=== PATIENT | male | born 1960 | race African-American/Black ===

== ENCOUNTER 2020-10-15 09:03 | Emergency (ER) | payer BC, OTHER ==
[~2020-10-15] VITALS: Ht 172.7 cm; Wt 72.3 kg
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
--- NOTE | 2020-10-15 10:29 | RAD ---
EXAM: Left shoulder, 3 views; pelvis and left hip, 3 views. HISTORY: Pain. COMPARISON: None. FINDINGS: Left shoulder: 3 views of the left shoulder obtained. There is no acute fracture, dislocation or subl uxation. There is minimal degenerative subchondral sclerosis involving the glenoid. There is degenera tive change involving the cervical spine, not formally assessed on this exam. Pelvis and left hip: A frontal view of the pelvis and 2 views of the left hip are obtained. There is no acute fracture, dislocation or subluxation. The femoral heads are normal in configuration. There i s a synovial cyst within the right femoral head-neck junction. This can be seen with chronic hip impi ngement. There is degenerative change at the lumbosacral junction. IMPRESSION: 1. No acute osseous finding. 2. Minimal left glenohumeral osteoarthritis. 3. Degenerative change involving the cervical spine and lumbosacral junction, not formally assessed o n this exam. Electronically signed by: Susana Camarillo MD (10/15/2020 10:27 AM) [facility]
[2020-10-15] MEDS ORDERED: NAPR-682 PO (11:04)
[2020-10-15 11:13] VITALS: BP 161/105
== END 2020-10-15 11:13 | disposition home or self-care (01) ==
LOC: ER 09:03
DX: S46.912A Strain of unspecified muscle, fascia and tendon at shoulder and upper arm level, left arm, initial encounter (principal); M25.552 Pain in left hip; M19.90 Unspecified osteoarthritis, unspecified site; I10 Essential (primary) hypertension; F17.200 Nicotine dependence, unspecified, uncomplicated; V49.49XA Driver injured in collision with other motor vehicles in traffic accident, initial encounter; Y93.I9 Activity, other involving external motion; Y92.89 Other specified places as the place of occurrence of the external cause; Y99.8 Other external cause status
CPT/HCPCS: 73030; 73502; 99284

== ENCOUNTER 2021-05-23 18:37 | Emergency (ER) | payer OTHER ==
[~2021-05-23] VITALS: Ht 172.7 cm; Wt 86.2 kg
[~2021-05-23 18:37] MED LIST: NAPR-682 PO
[2021-05-23 21:26] LABS: BILIRUBIN,URINE NEGATIVE (NEG); CLARITY,URINE CLEAR; COLOR,URINE YELLOW; NITRITE,URINE NEGATIVE (NEG); PH,URINE 6.5 (<5.0-8.0); PROTEIN,URINE NEGATIVE (NEG-TRACE); UROBILINOGEN,URINE 0.2 mg/dL (0.2 mg/dL)
[2021-05-23] MEDS ORDERED: ONDANSETRON PF 4 MG/2 ML VIAL. IVP ONE (21:30)
[2021-05-23] MEDS ORDERED: MORPHINE SULFATE 4 MG/ML INJ. IVP ONE (21:30)
[2021-05-23 21:35] LABS: BACTERIA,URINE 0 /HPF (0-FEW); BARBITURATES NEG (NEG); BENZODIAZEPINES NEG (NEG); CANNABINOIDS NEG (NEG); COCAINE NEG (NEG); METHADONE NEG (NEG); OPIATES NEG (NEG); PHENCYCLIDINE NEG (NEG); RBC,URINE 0 /HPF (0-2); WBC,URINE OCC /HPF (0-4)
[2021-05-23 21:37] LABS: AMPHETAMINE/METHAMPHETAMINE NEG (NEG)
[2021-05-23 21:39] LABS: BASO % 0 % (0-3); EOS # 0.2 x10^3/uL (0.0-0.7); EOS % 2 % (0-3); HEMATOCRIT 39.1 % (39.0-53.0); HEMOGLOBIN 13.3 g/dL (13.0-17.5); LYMPH # 3.2 x10^3/uL (1.0-4.8); LYMPH % 26 % (24-48); MEAN CORPUSCULAR HEMOGLOBIN 31 pg (25-35); MEAN CORPUSCULAR HGB CONC 34 g/dL (31-37); MEAN CORPUSCULAR VOLUME 92 fL (79-100); MONO # 0.8 x10^3/uL (0.0-1.1); MONO % 6 % (0-9); NEUT # 8.1 x10^3/uL (1.8-7.7); NEUT % 66 % (31-73); PLATELET COUNT 392 x10^3/uL (140-400); RED BLOOD COUNT 4.27 x10^6/uL (4.30-5.70); RED CELL DISTRIBUTION WIDTH 13.2 % (11.5-14.5); WHITE BLOOD COUNT 12.3 x10^3/uL (4.0-11.0)
[2021-05-23 21:51] LABS: CALCIUM 8.9 mg/dL (8.5-10.1); CREATININE 1.1 mg/dL (0.7-1.3); GFR 82.3; POTASSIUM 3.4 mmol/L (3.5-5.1)
[2021-05-23 21:57] LABS: ALBUMIN 3.8 g/dL (3.4-5.0); TOTAL BILIRUBIN 0.4 mg/dL (0.2-1.0); TOTAL PROTEIN 7.5 g/dL (6.4-8.2)
[2021-05-23] MEDS ORDERED: IOHEXOL 300 MG/ML 100ML VIAL. IV ONE (22:00)
[2021-05-23] MEDS ORDERED: CONTRAST GIVEN. MC PRN (22:00)
--- NOTE | 2021-05-23 22:25 | RAD ---
EXAM: CT Abdomen and Pelvis with IV contrast CLINICAL HISTORY: Right lower quadrant pain COMPARISON: none TECHNIQUE: Helical CT of the abdomen and pelvis was performed following the administration of intrave nous contrast. Axial, coronal and sagittal reformatted images were generated. PQRS compliance statement - One or more of the following individualized dose reduction techniques wer e utilized for this study: 1. Automated exposure control 2. Adjustment of the mA and/or kV according to patient size 3. Use of iterative reconstruction technique FINDINGS: Lower Chest: Linear and bandlike opacities likely scarring/atelectasis. Abdomen and Pelvis: No focal liver lesion. Gallstones are seen within the gallbladder. No biliary ductal dilatation. Ther e is edema between the pancreatic head and duodenum. Small calcification in this region possibly with in the common bile duct. Spleen and adrenal glands are unremarkable. Symmetric nephrograms. No focal renal lesion. No hydronep hrosis. No hydroureter. Bladder is unremarkable. Aorta is normal in caliber with atherosclerotic calcifications. Appendix is normal. Moderate colonic stool content. No bowel obstruction. Colonic diverticula are see n without evidence for acute diverticulitis. No abdominal or pelvic ascites. No abdominal or pelvic l ymphadenopathy. Bones: No aggressive osseous lesion. Facet degenerative changes in the lower spine. IMPRESSION: 1. 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 However give n the associated calcification, calcified gallstone within the common bile duct may also result in th is appearance. Recommend correlation with lab values and if further imaging is clinically indicated, MRI/MRCP would provide additional details. Differential also includes gastritis or duodenitis. 2. Colonic diverticula are seen without evidence for acute diverticulitis. Electronically signed by: Preston Sandoval MD (05/23/2021 10:23 PM) [facility]
--- NOTE | 2021-05-24 00:01 | RAD ---
EXAM: ULTRASOUND ABDOMEN LIMITED CLINICAL HISTORY: Reason: abd pain possible calcified gallstone on CT COMPARISON: CT 05/23/2020 TECHNIQUE: Limited ultrasound examination of the right upper quadrant of the abdomen was performed. FINDINGS: The pancreas is mostly obscured by overlying bowel gas.. Liver: The hepatic margin is smooth and the hepatic echogenicity is normal. There are no focal liver lesions. Flow seen within the portal veins. Biliary: Cholelithiasis. No wall thickening or pericholecystic fluid. There is no pain with direct transducer pressure over the gallbladder. Common bile duct measures 0.4 cm. Right Kidney: 10.5 cm in bipolar length. Normal renal cortical echotexture and thickness. No focal re nal lesion, shadowing renal calculus or hydronephrosis. Visualized portions of the abdominal aorta and inferior vena cava are unremarkable. There is no free fluid in the subhepatic space. IMPRESSION: Cholelithiasis. No evidence of acute cholecystitis. Normal caliber common bile duct. Electronically signed by: Srini Grigsby MD (05/23/2021 11:58 PM) [facility]
[2021-05-24] MEDS ORDERED: BISACODYL 5 MG TABLET.DR. PO STA (00:14)
[2021-05-24] MEDS ORDERED: MAGNESIUM CITRATE 296 ML SOLUTION. PO ONE (00:15)
[2021-05-24] MEDS ORDERED: POLY119P4 PO (00:24)
--- NOTE | 2021-05-24 00:25 | PHYS DOC ---
Past Medical History Past Medical History: Hypertension Past Surgical History: No Surgical History Smoking Status: Current Every Day Smoker Alcohol Use: Rarely Drug Use: None General Adult EDM: Chief Complaint: ABDOMINAL PAIN HPI: HPI: Patient is a 60 year old male with history of hypertension who presents the ED today complaining of 10 out of 10 right-sided abdominal pain, symptoms began Rich last week. Patient states he feels constipated. He states he took milk of magnesium and Pepto-Bismol with no relief. Patient denies any nausea, vomiting, diarrhea. Denies any fever. Denies anything specifically exacerbating or relieving his symptoms. He states his had small amount of stool since Saturday Review of Systems: Review of Systems: Constitutional: Denies fever or chills. [] Eyes: Denies change in visual acuity. [] HENT: Denies nasal congestion or sore throat. [] Respiratory: Denies cough or shortness of breath. [] Cardiovascular: Denies chest pain or edema. [] GI: Reports abdominal pain, denies Musculoskeletal: Denies back pain or joint pain. [] Integument: Denies rash. [] Neurologic: Denies headache, focal weakness or sensory changes. [] Psychiatric: Denies depression or anxiety. [] Heart Score: C/O Chest Pain: N/A Risk Factors: Risk Factors: DM, Current or recent (<one month) smoker, HTN, HLP, family history of CAD, obesity. Risk Scores: Score 0 - 3: 2.5% MACE over next 6 weeks - Discharge Home Score 4 - 6: 20.3% MACE over next 6 weeks - Admit for Clinical Observation Score 7 - 10: 72.7% MACE over next 6 weeks - Early Invasive Strategies Current Medications: Current Medications Medications (Trade) Dose Ordered Sig/Sarai Start Time Stop Time Status Last Admin Dose Admin Info (CONTRAST GIVEN -- Rx MONITORING) 1 each PRN DAILY PRN 05/23/21 22:00 05/25/21 21:59 Iohexol (Omnipaque 300 Mg/ml) 75 ml 1X ONCE 05/23/21 22:00 05/23/21 22:01 DC 05/23/21 22:04 75 ML Morphine Sulfate (Morphine Sulfate) 4 mg 1X ONCE 05/23/21 21:30 05/23/21 21:31 DC 05/23/21 22:29 4 MG Ondansetron HCl (Zofran) 4 mg 1X ONCE 05/23/21 21:30 05/23/21 21:31 DC 05/23/21 22:27 4 MG Allergies: Allergies: Allergies Coded Allergies Type Severity Reaction Last Updated Verified No Known Drug Allergies 06/24/15 No Physical Exam: PE: Constitutional: Well developed, well nourished, no acute distress, non-toxic appearance. [] HENT: Normocephalic, atraumatic, bilateral external ears normal, oropharynx moist, no oral exudates, nose normal. [] Eyes: PERRLA, EOMI, conjunctiva normal, no discharge. [] Neck: Normal range of motion, no tenderness, supple, no stridor. [] Cardiovascular:Heart rate regular rhythm, no murmur [] Lungs & Thorax: Bilateral breath sounds clear to auscultation [] Abdomen: Bowel sounds normal, soft, diffuse tenderness of the right side of the abdomen, negative Fischer sign, negative psoas sign, negative obturator sign, no guarding, no rebound tenderness no masses, no pulsatile masses. [] Skin: Warm, dry, no erythema, no rash. [] Back: No tenderness, no CVA tenderness. [] Extremities: No tenderness, no cyanosis, no clubbing, ROM intact, no edema. [] Neurologic: Alert and oriented X 3, normal motor function, normal sensory function, no focal deficits noted. [] Psychologic: Affect normal, judgement normal, mood normal. [] Current Patient Data: Labs: Laboratory Tests Test 05/23/21 21:00 05/23/21 21:30 Urine Collection Type Unknown Urine Color Yellow Urine Clarity Clear Urine pH 6.5 (<5.0-8.0) Urine Specific [place] 1.015 (1.000-1.030) Urine Protein Negative mg/dL (NEG-TRACE) Urine Glucose (UA) Negative mg/dL (NEG) Urine Ketones (Stick) Negative mg/dL (NEG) Urine Blood Negative (NEG) Urine Nitrite Negative (NEG) Urine Bilirubin Negative (NEG) Urine Urobilinogen Dipstick 0.2 mg/dL (0.2 mg/dL) Urine Leukocyte Esterase Negative (NEG) Urine RBC 0 /HPF (0-2) Urine WBC Occ /HPF (0-4) Urine Squamous Epithelial Cells Occ /LPF Urine Bacteria 0 /HPF (0-FEW) Urine Opiates Screen Neg (NEG) Urine Methadone Screen Neg (NEG) Urine Barbiturates Neg (NEG) Urine Phencyclidine Screen Neg (NEG) Urine Amphetamine/Methamphetamine Neg (NEG) Urine Benzodiazepines Screen Neg (NEG) Urine Cocaine Screen Neg (NEG) Urine Cannabinoids Screen Neg (NEG) Urine Ethyl Alcohol Neg (NEG) White Blood Count 12.3 x10^3/uL (4.0-11.0) H Red Blood Count 4.27 x10^6/uL (4.30-5.70) L Hemoglobin 13.3 g/dL (13.0-17.5) Hematocrit 39.1 % (39.0-53.0) Mean Corpuscular Volume 92 fL (79-100) Mean Corpuscular Hemoglobin 31 pg (25-35) Mean Corpuscular Hemoglobin Concent 34 g/dL (31-37) Red Cell Distribution Width 13.2 % (11.5-14.5) Platelet Count 392 x10^3/uL (140-400) Neutrophils (%) (Auto) 66 % (31-73) Lymphocytes (%) (Auto) 26 % (24-48) Monocytes (%) (Auto) 6 % (0-9) Eosinophils (%) (Auto) 2 % (0-3) Basophils (%) (Auto) 0 % (0-3) Neutrophils # (Auto) 8.1 x10^3/uL (1.8-7.7) H Lymphocytes # (Auto) 3.2 x10^3/uL (1.0-4.8) Monocytes # (Auto) 0.8 x10^3/uL (0.0-1.1) Eosinophils # (Auto) 0.2 x10^3/uL (0.0-0.7) Basophils # (Auto) 0.0 x10^3/uL (0.0-0.2) Sodium Level 141 mmol/L (136-145) Potassium Level 3.4 mmol/L (3.5-5.1) L Chloride Level 105 mmol/L (98-107) Carbon Dioxide Level 26 mmol/L (21-32) Anion Gap 10 (6-14) Blood Urea Nitrogen 11 mg/dL (8-26) Creatinine 1.1 mg/dL (0.7-1.3) Estimated GFR (Cockcroft-Gault) 82.3 BUN/Creatinine Ratio 10 (6-20) Glucose Level 126 mg/dL (70-99) H Calcium Level 8.9 mg/dL (8.5-10.1) Total Bilirubin 0.4 mg/dL (0.2-1.0) Aspartate Amino Transferase (AST) 14 U/L (15-37) L Alanine Aminotransferase (ALT) 24 U/L (16-63) Alkaline Phosphatase 79 U/L (46-116) Total Protein 7.5 g/dL (6.4-8.2) Albumin 3.8 g/dL (3.4-5.0) Albumin/Globulin Ratio 1.0 (1.0-1.7) Lipase 112 U/L (73-393) Ethyl Alcohol Level < 10 mg/dL (0-10) Laboratory Tests 05/23/21 21:30 Laboratory Tests 05/23/21 21:30 Vital Signs: Vital Signs Date Time Temp Pulse Resp B/P (MAP) Pulse Ox O2 Delivery O2 Flow Rate FiO2 05/23/21 22:29 78 18 144/96 (112) 99 Room Air 05/23/21 21:10 97.6 97.6 EKG: EKG: [] Radiology/Procedures: Radiology/Procedures: []PROCEDURE: CT ABD PELV W/ IV CONTRST ONLY EXAM: CT Abdomen and Pelvis with IV contrast CLINICAL HISTORY: Right lower quadrant pain COMPARISON: none TECHNIQUE: Helical CT of the abdomen and pelvis was performed following the administration of intravenous contrast. Axial, coronal and sagittal reformatted images were generated. PQRS compliance statement - One or more of the following individualized dose reduction techniques were utilized for this study: 1. Automated exposure control 2. Adjustment of the mA and/or kV according to patient size 3. Use of iterative reconstruction technique FINDINGS: Lower Chest: Linear and bandlike opacities likely scarring/atelectasis. Abdomen and Pelvis: No focal liver lesion. Gallstones are seen within the gallbladder. No biliary ductal dilatation. There is edema between the pancreatic head and duodenum. Small calcification in this region possibly within the common bile duct. Spleen and adrenal glands are unremarkable. Symmetric nephrograms. No focal renal lesion. No hydronephrosis. No hydroureter. Bladder is unremarkable. Aorta is normal in caliber with atherosclerotic calcifications. Appendix is normal. Moderate colonic stool content. No bowel obstruction. Colonic diverticula are seen without evidence for acute diverticulitis. No abdom inal or pelvic ascites. No abdominal or pelvic lymphadenopathy. Bones: No aggressive osseous lesion. Facet degenerative changes in the lower spine. IMPRESSION: 1. 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 However given the associated calcification, calcified gallstone within the common bile duct may also result in this appearance. Recommend correlation with lab values and if further imaging is clinically indicated, MRI/MRCP would provide additional details. Differential also includes gastritis or duodenitis. 2. Colonic diverticula are seen without evidence for acute diverticulitis. Electronically signed by: Preston Jaeger MD (05/23/2021 10:23 PM) [facility] DI[facility]ATED and SIGNED BY: PRESTON JAEGER MD DATE: 05/23/[id number] 0 PROCEDURE: ABDOMEN LTD EXAM: ULTRASOUND ABDOMEN LIMITED CLINICAL HISTORY: Reason: abd pain possible calcified gallstone on CT COMPARISON: CT 05/23/2020 TECHNIQUE: Limited ultrasound examination of the right upper quadrant of the abdomen was performed. FINDINGS: The pancreas is mostly obscured by overlying bowel gas.. Liver: The hepatic margin is smooth and the hepatic echogenicity is normal. There are no focal liver lesions. Flow seen within the portal veins. Biliary: Cholelithiasis. No wall thickening or pericholecystic fluid. There is no pain with direct transducer pressure over the gallbladder. Common bile duct measures 0.4 cm. Right Kidney: 10.5 cm in bipolar length. Normal renal cortical echotexture and thickness. No focal renal lesion, shadowing renal calculus or hydronephrosis. Visualized portions of the abdominal aorta and inferior vena cava are unremarkable. There is no free fluid in the subhepatic space. IMPRESSION: Cholelithiasis. No evidence of acute cholecystitis. Normal caliber common bile duct. Electronically signed by: Karsten Grigsby MD (05/23/2021 11:58 PM) [facility] DI[facility]ATED and SIGNED BY: KARSTEN GRIGSBY MD DATE: 05/23/[id number] 0 Course & Med Decision Making: Course & Med Decision Making Pertinent Labs and Imaging studies reviewed. (See chart for details) This is a 60-year-old male patient presenting to the ED today with right-sided abdominal pain since Saturday last week. Patient is complaining of constipation. CBC with a WBC of 12.3, CMP, lipase, UA with no acute findings CT of the abdomen and pelvis noted for edema between the pancreatic head and duodenum may be seen with groove pancreatitis. However given the associated calcification, calcified gallstone within the common bile duct may also result in this appearance. Recommend correlation with lab values and if further imaging is clinically indicated, MRI/MRCP would provide additional details. Differential also includes gastritis or duodenitis.Colonic diverticula are seen without evidence for acute diverticulitis. Moderate colonic stool Limited right upper quadrant ultrasound noted for cholelithiasis, no cholecystitis Provided general surgeon for follow-up, discharge to home. Discussed constipation management and prevention Dragon Disclaimer: Dragon Disclaimer: This electronic medical record was generated, in whole or in part, using a voice recognition dictation system. Departure Departure Impression: Primary Impression: Cholelithiasis Qualified Codes: K80.20 - Calculus of gallbladder without cholecystitis without obstruction Additional Impressions: Constipation Qualified Codes: K59.00 - Constipation, unspecified Right lower quadrant pain Disposition: HOME / SELF CARE / HOMELESS Condition: STABLE Referrals: RAMBO VANG JR, MD (PCP) follow up in 2 weeks JUDITH FLOOD MD follow up in 1-2 weeks Patient Instructions: Cholelithiasis, [id number], Constipation, Adult Additional Instructions: You were evaluated in the emergency room and noted to be constipated, we encourage you to increase your dietary fiber intake, increase your intake of green leafy vegetables. Increase your water intake. You also have some gallstones. Please follow-up with the provided general surgeon as an outpatient for this. One thing you can do is to avoid eating greasy fatty foods, spicy foods, this may reduce some of the incidence of abdominal pain. Scripts Polyethylene Glycol 3350 (MIRALAX) 119 Gm Powder 17 GM PO DAILY for constipation, #527 GM 0 Refills dissolve in water Prov: AVA GONSALES APRN 05/24/21 AVA GONSALES APRN May 24, 2021 00:25
[2021-05-24 00:33] VITALS: BP 155/99
== END 2021-05-24 00:40 | disposition home or self-care (01) ==
LOC: ER 18:37
DX: K80.20 Calculus of gallbladder without cholecystitis without obstruction (principal); K59.00 Constipation, unspecified; I10 Essential (primary) hypertension; F17.200 Nicotine dependence, unspecified, uncomplicated
CPT/HCPCS: 36415; 74177; 76705; 80053; 80307; 81001; 83690; 85025; 96374; 96375; 99285; G0480; J2270; J2405; Q9967

== ENCOUNTER 2021-11-04 06:23 | Emergency (ER) | payer OTHER ==
[~2021-11-04] VITALS: Ht 175.3 cm; Wt 81.8 kg
[~2021-11-04 06:23] MED LIST changes: +POLY119P4 PO
--- NOTE | 2021-11-04 06:36 | PHYS DOC ---
Past Medical History Past Medical History: Hypertension Past Surgical History: No Surgical History Smoking Status: Current Every Day Smoker Alcohol Use: Rarely Drug Use: None Adult General HPI HPI Patient is a 61 year old male present emergency department for evaluation of diffuse upper abdominal pain that has been going on for months as he says he was here in June for the same complaint but appears that he was here in May for abdominal pain. He says he has been dealing with it but the pain has been worse over the past several days. The pain gets worse with eating and drinking and he has been eating and drinking less. Pain starts within minutes of eating and is a sharp and aching pain in the epigastrium and right upper quadrant that radiates straight through the back. He has nausea and constipation but no fe vers chills vomiting diarrhea dysuria hematuria. He says that he does urinate more often and wakes up at least 3 times at night to urinate. He has been taking laxatives including MiraLAX and magnesium citrate to have bowel movements. His last bowel movement was 2 days ago. He is in no acute distress with normal vital signs. Looking at the records appears that he had a CT and ultrasound done in May that showed cholelithiasis and he had leukocytosis and was supposed to follow-up with a general surgeon as an outpatient. He said he did not know this and he has seen his primary care provider and has not been started on any medications for gastritis. He says he is on no PPI or H2 block er. He denies any specialty referrals. Review of Systems Review of Systems Constitutional: Denies fever or chills [] Eyes: Denies change in visual acuity, redness, or eye pain [] HENT: Denies nasal congestion or sore throat [] Respiratory: Denies cough or shortness of breath [] Cardiovascular: No additional information not addressed in HPI [] GI: + abdominal pain, nausea. No vomiting, bloody stools or diarrhea [] : Denies dysuria or hematuria [] Musculoskeletal: Denies back pain or joint pain [] Integument: Denies rash or skin lesions [] Neurologic: Denies headache, focal weakness or sensory changes [] All other systems were reviewed and found to be within normal limits, except as documented in this note. Current Medications Current Medications Current Medications Medications (Trade) Dose Ordered Sig/Sarai Start Time Stop Time Status Last Admin Dose Admin Morphine Sulfate (Morphine Sulfate) 4 mg 1X PRN 11/04/21 06:45 11/04/21 08:05 4 MG Multi-Ingredient Mouthwash/Gargle (Gi Cocktail) 20 ml 1X ONCE 11/04/21 07:00 11/04/21 07:01 DC 11/04/21 08:04 20 ML Ondansetron HCl (Zofran) 4 mg 1X ONCE 11/04/21 06:45 11/04/21 06:46 DC 11/04/21 08:05 4 MG Pantoprazole Sodium (PROTONIX VIAL for IV PUSH) 40 mg 1X ONCE 11/04/21 07:00 11/04/21 07:01 DC 11/04/21 08:06 40 MG Sodium Chloride 1,000 ml @ 1,000 mls/hr 1X ONCE 11/04/21 06:45 11/04/21 07:44 DC 11/04/21 08:04 1,000 MLS/HR Allergies Allergies Allergies Coded Allergies Type Severity Reaction Last Updated Verified No Known Drug Allergies 11/04/21 No Physical Exam Physical Exam Constitutional: Well developed, well nourished, no acute distress, non-toxic william earance. [] HENT: Normocephalic, atraumatic, bilateral external ears normal, oropharynx moist, no oral exudates, nose normal. [] Eyes: PERRLA, EOMI, conjunctiva normal, no discharge. [] Neck: Normal range of motion, no tenderness, supple, no stridor. [] Cardiovascular:Heart rate regular rhythm, no murmur [] Lungs & Thorax: Bilateral breath sounds clear to auscultation [] Abdomen: Bowel sounds normal, soft, positive epigastric tenderness to palpation with no rebound or guarding. Skin: Warm, dry, no erythema, no rash. [] Back: No tenderness, no CVA tenderness. [] Extremities: No tenderness, no cyanosis, no clubbing, ROM intact, no edema. [] Neurologic: Alert and oriented X 3, normal motor function, normal sensory function, no focal deficits noted. [] Current Patient Data Vital Signs Vital Signs Date Time Temp Pulse Resp B/P (MAP) Pulse Ox O2 Delivery O2 Flow Rate FiO2 11/04/21 08:05 0 98 Room Air 11/04/21 06:43 97.9 79 143/80 (101) 97.9 Lab Values Laboratory Tests Test 11/04/21 07:37 11/04/21 08:57 11/04/21 09:18 White Blood Count 10.2 x10^3/uL (4.0-11.0) Red Blood Count 4.76 x10^6/uL (4.30-5.70) Hemoglobin 14.3 g/dL (13.0-17.5) Hematocrit 42.2 % (39.0-53.0) Mean Corpuscular Volume 89 fL (79-100) Mean Corpuscular Hemoglobin 30 pg (25-35) Mean Corpuscular Hemoglobin Concent 34 g/dL (31-37) Red Cell Distribution Width 14.7 % (11.5-14.5) H Platelet Count 460 x10^3/uL (140-400) H Neutrophils (%) (Auto) 66 % (31-73) Lymphocytes (%) (Auto) 23 % (24-48) L Monocytes (%) (Auto) 7 % (0-9) Eosinophils (%) (Auto) 2 % (0-3) Basophils (%) (Auto) 1 % (0-3) Neutrophils # (Auto) 6.8 x10^3/uL (1.8-7.7) Lymphocytes # (Auto) 2.4 x10^3/uL (1.0-4.8) Monocytes # (Auto) 0.7 x10^3/uL (0.0-1.1) Eosinophils # (Auto) 0.2 x10^3/uL (0.0-0.7) Basophils # (Auto) 0.1 x10^3/uL (0.0-0.2) Sodium Level 142 mmol/L (136-145) Potassium Level 4.0 mmol/L (3.5-5.1) Chloride Level 108 mmol/L (98-107) H Carbon Dioxide Level 24 mmol/L (21-32) Anion Gap 10 (6-14) Blood Urea Nitrogen 5 mg/dL (8-26) L Creatinine 1.1 mg/dL (0.7-1.3) Estimated GFR (Cockcroft-Gault) 82.1 BUN/Creatinine Ratio 5 (6-20) L Glucose Level 101 mg/dL (70-99) H Calcium Level 8.8 mg/dL (8.5-10.1) Total Bilirubin 0.5 mg/dL (0.2-1.0) Aspartate Amino Transferase (AST) 9 U/L (15-37) L Alanine Aminotransferase (ALT) 12 U/L (16-63) L Alkaline Phosphatase 54 U/L (46-116) Total Protein 6.3 g/dL (6.4-8.2) L Albumin 3.1 g/dL (3.4-5.0) L Albumin/Globulin Ratio 1.0 (1.0-1.7) Lipase 69 U/L (73-393) L Urine Collection Type Unknown Urine Color (Auto) Yellow Urine Turbidity Clear Urine pH (Auto) 6.0 (<5.0-8.0) Urine Specific [place] 1.014 (1.000-1.030) Urine Protein (Auto) Negative mg/dL (Negative) Urine Glucose (Auto)(UA) Negative mg/dL (Negative) Urine Ketones (Auto) Negative mg/dL (Negative) Urine Blood (Auto) Negative (Negative) Urine Nitrite Negative (Negative) Urine Bilirubin (Auto) Negative (Negative) Urine Urobilinogen (Auto) Normal mg/dL (Normal) Urine Leukocyte Esterase (Auto) Negative (Negative) Urine RBC 0 /HPF (0-2) Urine WBC Occ /HPF (0-4) Urine Squamous Epithelial Cells Few /LPF Urine Bacteria 0 /HPF (0-FEW) Urine Mucus Slight /LPF Laboratory Tests 11/04/21 07:37 Laboratory Tests 11/04/21 08:57 EKG EKG [] Radiology/Procedures Radiology/Procedures IMPRESSION: 1. Inflammatory changes are identified in the region of the gastric antrum, proximal duodenum and head/uncinate process of the pancreas. Differential considerations would include pancreatitis with reactive inflammatory changes involving the bowel versus peptic ulcer disease without perforation versus groove pancreatitis. No organized fluid collection is identified. No evidence for hemorrhage. 2. Bronchial wall thickening compatible with nonspecific bronchitis. 3. Coarse calcifications within the region of the head and uncinate process of pancreas could reflect sequela of chronic pancreatitis. Course & Med Decision Making Course & Med Decision Making Certainly gastritis or ulcer or gallbladder pathology are in the differential but I will check labs and imaging treat his symptoms and reassess. Based off radiology interpretation I highly suspect this is gastritis and duodenitis. Pancreatitis is a consideration but his lipase is normal. Chronic pancreatitis is a possibility as well but patient says he does not drink alcohol and there is no signs of active gallbladder disease with normal liver enzymes and bilirubin. Clinically I suspect this is more of inflammatory state of the stomach and the duodenum with possible ulcer. Patient says that his pain has resolved here and his repeat abdominal exam is benign and he is drinking fluids with no difficulty and asking to go home. Patient says that he would like to be treated for these conditions. I do not see any reason to admit him to the hospital for further GI work-up as an inpatient but I did tell him he will need outpatient referral to GI and likely endoscopy as an outpatient. He also wants to be treated for BPH. I told him I will start him on Flomax for this but he will need to follow with his primary care provider. Patient told of all incide ntal findings on labs and imaging and the need for follow-up with primary care provider for this as well. Patient told to take in a soft nonirritating diet. Patient aware and agreeable with plan for discharge and verbalized understanding of need for short-term PCP and GI follow-up and strict ED return precautions discussed include worsening pain fevers vomiting or other general concerns. Dragon Disclaimer Dragon Disclaimer This electronic medical record was generated, in whole or in part, using a voice recognition dictation system. Departure Departure Impression: Primary Impression: Abdominal pain Additional Impressions: Gastritis Duodenitis Disposition: HOME / SELF CARE / HOMELESS Condition: STABLE Referrals: RAMBO VANG JR, MD (PCP) NADER HERNANDEZ MD Patient Instructions: Gastritis, Adult Additional Instructions: The medications I will prescribe will help your pain however it will not take all your pain away from the start. Avoid nsaids such as Naproxen and Ibuprofen as this will make your condition worse. Start on the Protonix and take the [place] as needed for severe pain. You can continue taking Tums and Maalox for immediate relief. Take in a soft nonirritating diet. Follow-up with your primary care provider within 3 to 4 days for recheck. Call the GI doctor on Saturday for follow-up. Come back to the emergency department with worsening pain fevers vomiting or other general concerns. Thank you! Scripts Pantoprazole Sodium (PROTONIX ) 40 Mg Tablet. 40 MG PO DAILYAC for GERD, #30 TAB Prov: TATUM MAST DO 11/04/21 Ondansetron (ONDANSETRON ODT) 4 Mg Tab.rapdis 1 TAB PO PRN Q6-8HRS, #16 TAB Prov: TATUM MAST DO 11/04/21 Hydrocodone Bit/Acetaminophen (HYDROCODONE-APAP 5-325 ) 1 Tab Tablet 1 TAB PO PRN Q6HRS PRN for PAIN, #20 TAB 0 Refills Prov: TATUM MAST DO 11/04/21 Tamsulosin Hcl (FLOMAX) 0.4 Mg Cap.er.24h 0.4 MG PO QHS, #30 TAB Prov: TATUM MAST DO 11/04/21 Problem Qualifiers Primary Impression: Abdominal pain Abdominal location: epigastric Qualified Codes: R10.13 - Epigastric pain Additional Impressions: Gastritis Gastritis type: unspecified gastritis Chronicity: chronic Gastritis bleeding: without bleeding Qualified Codes: K29.50 - Unspecified chronic gastritis without bleeding TATUM MAST DO November 04, 2021 06:36
[2021-11-04] MEDS ORDERED: IV NORMAL SALINE 1000ML BAG 1,000 ML IV ONE (06:45)
[2021-11-04] MEDS ORDERED: ONDANSETRON PF 4 MG/2 ML VIAL. IVP ONE (06:45)
[2021-11-04] MEDS ORDERED: MORPHINE SULFATE 4 MG/ML INJ. IV PRN (06:45)
[2021-11-04] MEDS ORDERED: PANTOPRAZOLE IV PUSH 40 MG VIAL. IVP ONE (07:00)
[2021-11-04] MEDS ORDERED: LIDO:MAALOX 1:1 20 ML SINGLE DOSE. SWSW ONE (07:00)
[2021-11-04 07:50] LABS: BASO # 0.1 x10^3/uL (0.0-0.2); BASO % 1 % (0-3); EOS # 0.2 x10^3/uL (0.0-0.7); EOS % 2 % (0-3); HEMATOCRIT 42.2 % (39.0-53.0); HEMOGLOBIN 14.3 g/dL (13.0-17.5); LYMPH # 2.4 x10^3/uL (1.0-4.8); LYMPH % 23 % (24-48); MEAN CORPUSCULAR HEMOGLOBIN 30 pg (25-35); MEAN CORPUSCULAR HGB CONC 34 g/dL (31-37); MEAN CORPUSCULAR VOLUME 89 fL (79-100); MONO # 0.7 x10^3/uL (0.0-1.1); MONO % 7 % (0-9); NEUT # 6.8 x10^3/uL (1.8-7.7); NEUT % 66 % (31-73); PLATELET COUNT 460 x10^3/uL (140-400); RED BLOOD COUNT 4.76 x10^6/uL (4.30-5.70); RED CELL DISTRIBUTION WIDTH 14.7 % (11.5-14.5); WHITE BLOOD COUNT 10.2 x10^3/uL (4.0-11.0)
--- NOTE | 2021-11-04 07:57 | RAD ---
PQRS Compliance Statement: One or more of the following individualized dose reduction techniques were utilized for this examinat ion: 1. Automated exposure control 2. Adjustment of the mA and/or kV according to patient size 3. Use of iterative reconstruction technique CT abdomen/pelvis without contrast 11/04/2021 7:24 AM INDICATION: Abdominal pain for months COMPARISON: CT abdomen/pelvis 05/23/2021 TECHNIQUE: Multiple axial CT images of the abdomen and pelvis were obtained without intravenous contr ast. Coronal and sagittal reformats are provided. FINDINGS: Bronchial wall thickening compatible with nonspecific bronchitis. Heart size is within normal limits. Evaluation of solid abdominal viscera is limited by lack of intravenous contrast. Liver is normal in appearance. Calcifications within the spleen suggest sequela prior granulomatous exposure. Adrenal g lands are normal. Gallbladder is present without adjacent inflammation. There are calcifications with in the pancreas which could represent sequela of chronic pancreatitis. There is circumferential wall thickening involving the gastric antrum proximal duodenum with peripancreatic inflammatory changes, a long the head and uncinate process. Differential considerations would include gastritis/duodenitis ve rsus pancreatitis or pancreatitis with reactive inflammatory changes involving the distal stomach and small bowel. No definite organized fluid collection is identified. Limited evaluation of the vascula ture in this region. Superior mesenteric artery is normal. The kidneys are relatively symmetric in appearance. There is no suspicious renal mass within the limi tations of a noncontrast examination. There is no hydronephrosis. There are no calculi within the kid neys, ureters or urinary bladder. Small and large bowel are otherwise normal in caliber. No bowel obstruction. Appendix is normal. Term inal ileum is normal. Urinary bladder is within normal limits given degree of distention. Prostate an d seminal vesicles are normal. No suspicious osseous abnormality is identified. IMPRESSION: 1. Inflammatory changes are identified in the region of the gastric antrum, proximal duodenum and hea d/uncinate process of the pancreas. Differential considerations would include pancreatitis with react khadar inflammatory changes involving the bowel versus peptic ulcer disease without perforation versus g roove pancreatitis. No organized fluid collection is identified. No evidence for hemorrhage. 2. Bronchial wall thickening compatible with nonspecific bronchitis. 3. Coarse calcifications within the region of the head and uncinate process of pancreas could reflect sequela of chronic pancreatitis. Electronically signed by: Darline Donald MD (11/04/2021 7:55 AM) [id number]
[2021-11-04 09:12] LABS: CALCIUM 8.8 mg/dL (8.5-10.1); CREATININE 1.1 mg/dL (0.7-1.3); GFR 82.1
[2021-11-04 09:18] LABS: ALBUMIN 3.1 g/dL (3.4-5.0); TOTAL BILIRUBIN 0.5 mg/dL (0.2-1.0); TOTAL PROTEIN 6.3 g/dL (6.4-8.2)
[2021-11-04 09:39] VITALS: BP 121/73
[2021-11-04 09:39] LABS: BACTERIA,URINE 0 /HPF (0-FEW); RBC,URINE 0 /HPF (0-2); WBC,URINE OCC /HPF (0-4)
[2021-11-04] MEDS ORDERED: ONDA4TAB12 PO ×2 (09:54→10:57)
[2021-11-04] MEDS ORDERED: HYDR-2761 PO ×2 (09:54→10:57)
[2021-11-04] MEDS ORDERED: PANT40TA77 PO ×2 (09:54→10:57)
[2021-11-04] MEDS ORDERED: TAMS0.4C97 PO ×2 (09:54→10:57)
== END 2021-11-04 10:00 | disposition home or self-care (01) ==
LOC: ER 06:23
DX: K29.70 Gastritis, unspecified, without bleeding (principal); K29.80 Duodenitis without bleeding; I10 Essential (primary) hypertension; F17.200 Nicotine dependence, unspecified, uncomplicated
CPT/HCPCS: 36415; 74176; 80053; 81001; 83690; 85025; 96361; 96374; 96375; 99285; C9113; J2270; J2405; J7030

== ENCOUNTER 2021-11-07 00:08 | Emergency (ER) | payer OTHER ==
[~2021-11-07] VITALS: Ht 177.8 cm; Wt 81.0 kg
[~2021-11-07 00:08] MED LIST changes: +HYDR-2761 PO; +ONDA4TAB12 PO; +PANT40TA77 PO; +TAMS0.4C97 PO
[2021-11-07] MEDS: IV RINGERS,LACTATED 1000ML 1,000 ML IV SCH ×2 (01:46→01:58)
[2021-11-07 01:57] LABS: BASO # 0.1 x10^3/uL (0.0-0.2); BASO % 1 % (0-3); EOS # 0.1 x10^3/uL (0.0-0.7); EOS % 1 % (0-3); HEMATOCRIT 40.1 % (39.0-53.0); HEMOGLOBIN 13.8 g/dL (13.0-17.5); LYMPH # 1.6 x10^3/uL (1.0-4.8); LYMPH % 15 % (24-48); MEAN CORPUSCULAR HEMOGLOBIN 31 pg (25-35); MEAN CORPUSCULAR HGB CONC 34 g/dL (31-37); MEAN CORPUSCULAR VOLUME 90 fL (79-100); MONO # 0.5 x10^3/uL (0.0-1.1); MONO % 5 % (0-9); NEUT # 8.3 x10^3/uL (1.8-7.7); NEUT % 78 % (31-73); PLATELET COUNT 438 x10^3/uL (140-400); RED BLOOD COUNT 4.47 x10^6/uL (4.30-5.70); RED CELL DISTRIBUTION WIDTH 14.5 % (11.5-14.5); WHITE BLOOD COUNT 10.6 x10^3/uL (4.0-11.0)
[2021-11-07] MEDS ORDERED: MORPHINE SULFATE 4 MG/ML INJ. IVP ONE (02:00)
[2021-11-07 02:15] LABS: CALCIUM 9.8 mg/dL (8.5-10.1); GFR 91.6; POTASSIUM 4.7 mmol/L (3.5-5.1)
[2021-11-07 02:22] LABS: ALBUMIN 3.7 g/dL (3.4-5.0); ALBUMIN/GLOBULIN RATIO 1.1 (1.0-1.7); TOTAL BILIRUBIN 0.4 mg/dL (0.2-1.0); TOTAL PROTEIN 7.2 g/dL (6.4-8.2)
[2021-11-07 02:27] LABS: BACTERIA,URINE 0 /HPF (0-FEW); RBC,URINE 0 /HPF (0-2); WBC,URINE OCC /HPF (0-4)
--- NOTE | 2021-11-07 03:20 | PHYS DOC ---
Past Medical History Past Medical History: Hypertension Past Surgical History: No Surgical History Smoking Status: Never Smoker Alcohol Use: None Drug Use: None General Adult EDM: Chief Complaint: ABDOMINAL PAIN HPI: HPI: Patient is a 61 year old male who presents to the emergency department today with concerns for abdominal pain. Patient states he began having abdominal pain on Saturday. He states he presented here and at that time was diagnosed with gastritis. He states he went home and has been taking Lortab for pain but pain was worse today. Pain is epigastric. It does not radiate. He states it is about a 9 out of 10 and has been constant since it began the day. He does not endorse some associated nausea but denies any vomiting. He denies any diarrhea. He denies any blood in his stools or black tarry stools. There are no palliative or provocative factors for the pain. He denies any associated fevers. Patient states that he did drink a couple beers today. Review of Systems: Review of Systems: Constitutional: Denies fever or chills. [] Eyes: Denies change in visual acuity. [] HENT: Denies nasal congestion or sore throat. [] Respiratory: Denies cough or shortness of breath. [] Cardiovascular: Denies chest pain or edema. [] GI: Positive for abdominal pain : Denies dysuria. [] Musculoskeletal: Denies back pain or joint pain. [] Integument: Denies rash. [] Neurologic: Denies headache, focal weakness or sensory changes. [] Endocrine: Denies polyuria or polydipsia. [] Lymphatic: Denies swollen glands. [] Psychiatric: Denies depression or anxiety. [] Heart Score: C/O Chest Pain: No Family History: Family History: Noncontributory Current Medications: Current Medications Medications (Trade) Dose Ordered Sig/Sarai Start Time Stop Time Status Last Admin Dose Admin Morphine Sulfate (Morphine Sulfate) 4 mg 1X ONCE 11/07/21 02:00 11/07/21 02:01 DC 11/07/21 01:48 4 MG Ringer's Solution 1,000 ml @ 1,000 mls/hr Q1H 11/07/21 02:00 11/07/21 03:00 DC 11/07/21 01:58 1,000 MLS/HR Allergies: Allergies: Allergies Coded Allergies Type Severity Reaction Last Updated Verified No Known Drug Allergies 11/04/21 No Physical Exam: PE: Constitutional: Well developed, well nourished, no acute distress, non-toxic appearance. [] HENT: Normocephalic, atraumatic, bilateral external ears normal, oropharynx moist, no oral exudates, nose normal. [] Eyes: PERRLA, EOMI, conjunctiva normal, no discharge. [] Neck: Normal range of motion, no tenderness, supple, no stridor. [] Cardiovascular:Heart rate regular rhythm, no murmur [] Lungs & Thorax: Bilateral breath sounds clear to auscultation [] Abdomen: Bowel sounds normal, soft, epigastric tenderness to palpation, no rebound or guarding no masses, no pulsatile masses. [] Skin: Warm, dry, no erythema, no rash. [] Back: No tenderness, no CVA tenderness. [] Extremities: No tenderness, no cyanosis, no clubbing, ROM intact, no edema. [] Neurologic: Alert and oriented X 3, normal motor function, normal sensory function, no focal deficits noted. [] Psychologic: Affect normal, judgement normal, mood normal. [] Current Patient Data: Labs: Laboratory Tests Test 11/07/21 01:41 11/07/21 02:01 White Blood Count 10.6 x10^3/uL (4.0-11.0) Red Blood Count 4.47 x10^6/uL (4.30-5.70) Hemoglobin 13.8 g/dL (13.0-17.5) Hematocrit 40.1 % (39.0-53.0) Mean Corpuscular Volume 90 fL (79-100) Mean Corpuscular Hemoglobin 31 pg (25-35) Mean Corpuscular Hemoglobin Concent 34 g/dL (31-37) Red Cell Distribution Width 14.5 % (11.5-14.5) Platelet Count 438 x10^3/uL (140-400) H Neutrophils (%) (Auto) 78 % (31-73) H Lymphocytes (%) (Auto) 15 % (24-48) L Monocytes (%) (Auto) 5 % (0-9) Eosinophils (%) (Auto) 1 % (0-3) Basophils (%) (Auto) 1 % (0-3) Neutrophils # (Auto) 8.3 x10^3/uL (1.8-7.7) H Lymphocytes # (Auto) 1.6 x10^3/uL (1.0-4.8) Monocytes # (Auto) 0.5 x10^3/uL (0.0-1.1) Eosinophils # (Auto) 0.1 x10^3/uL (0.0-0.7) Basophils # (Auto) 0.1 x10^3/uL (0.0-0.2) Sodium Level 142 mmol/L (136-145) Potassium Level 4.7 mmol/L (3.5-5.1) Chloride Level 106 mmol/L (98-107) Carbon Dioxide Level 25 mmol/L (21-32) Anion Gap 11 (6-14) Blood Urea Nitrogen 8 mg/dL (8-26) Creatinine 1.0 mg/dL (0.7-1.3) Estimated GFR (Cockcroft-Gault) 91.6 BUN/Creatinine Ratio 8 (6-20) Glucose Level 116 mg/dL (70-99) H Calcium Level 9.8 mg/dL (8.5-10.1) Total Bilirubin 0.4 mg/dL (0.2-1.0) Aspartate Amino Transferase (AST) 23 U/L (15-37) Alanine Aminotransferase (ALT) 20 U/L (16-63) Alkaline Phosphatase 68 U/L (46-116) Troponin I High Sensitivity 5 ng/L (4-75) Total Protein 7.2 g/dL (6.4-8.2) Albumin 3.7 g/dL (3.4-5.0) Albumin/Globulin Ratio 1.1 (1.0-1.7) Lipase 89 U/L (73-393) Urine Collection Type Unknown Urine Color (Auto) Colorless Urine Turbidity Clear Urine pH (Auto) 7.0 (<5.0-8.0) Urine Specific [place] 1.009 (1.000-1.030) Urine Protein (Auto) Negative mg/dL (Negative) Urine Glucose (Auto)(UA) Negative mg/dL (Negative) Urine Ketones (Auto) Negative mg/dL (Negative) Urine Blood (Auto) Negative (Negative) Urine Nitrite Negative (Negative) Urine Bilirubin (Auto) Negative (Negative) Urine Urobilinogen (Auto) Normal mg/dL (Normal) Urine Leukocyte Esterase (Auto) Negative (Negative) Urine RBC 0 /HPF (0-2) Urine WBC Occ /HPF (0-4) Urine Squamous Epithelial Cells Few /LPF Urine Bacteria 0 /HPF (0-FEW) Urine Mucus Slight /LPF Laboratory Tests 11/07/21 01:41 Laboratory Tests 11/07/21 01:41 Vital Signs: Vital Signs Date Time Temp Pulse Resp B/P (MAP) Pulse Ox O2 Delivery O2 Flow Rate FiO2 11/07/21 01:56 75 14 164/101 (122) 96 Room Air 11/07/21 00:46 98.6 98.6 EKG: EKG: [] Radiology/Procedures: Radiology/Procedures: CT abdomen/pelvis without contrast 11/04/2021 7:24 AM INDICATION: Abdominal pain for months COMPARISON: CT abdomen/pelvis 05/23/2021 TECHNIQUE: Multiple axial CT images of the abdomen and pelvis were obtained without intravenous contrast. Coronal and sagittal reformats are provided. FINDINGS: Bronchial wall thickening compatible with nonspecific bronchitis. Heart size is within normal limits. Evaluation of solid abdominal viscera is limited by lack of intravenous contrast. Liver is normal in appearance. Calcifications within the spleen suggest sequela prior granulomatous exposure. Adrenal glands are normal. Gallbladder is present without adjacent inflammation. There are calcifications within the pancreas which could represent sequela of chronic pancreatitis. There is circumferential wall thickening involving the gastric antrum proximal duodenum with peripancreatic inflammatory changes, along the hea d and uncinate process. Differential considerations would include gastritis/duodenitis versus pancreatitis or pancreatitis with reactive inflammatory changes involving the distal stomach and small bowel. No definite organized fluid collection is identified. Limited evaluation of the vasculature in this region. Superior mesenteric artery is normal. The kidneys are relatively symmetric in appearance. There is no suspicious renal mass within the limitations of a noncontrast examination. There is no hydronephrosis. There are no calculi within the kidneys, ureters or urinary bladder. Small and large bowel are otherwise normal in caliber. No bowel obstruction. Appendix is normal. Terminal ileum is normal. Urinary bladder is within normal limits given degree of distention. Prostate and seminal vesicles are normal. No suspicious osseous abnormality is identified. IMPRESSION: 1. Inflammatory changes are identified in the region of the gastric antrum, proximal duodenum and head/uncinate process of the pancreas. Differential considerations would include pancreatitis with reactive inflammatory changes involving the bowel versus peptic ulcer disease without perforation versus groove pancreatitis. No organized fluid collection is identified. No evidence for hemorrhage. 2. Bronchial wall thickening compatible with nonspecific bronchitis. 3. Coarse calcifications within the region of the head and uncinate process of pancreas could reflect sequela of chronic pancreatitis. Electronically signed by: Darline Donald MD (11/04/2021 7:55 AM) [id number] Impression: Epigastric pain Course & Med Decision Making: Course & Med Decision Making Patient remained hemodynamically stable in the emergency department. He was evaluated the bedside with a physical exam. He was given morphine for pain. Basic labs obtained and unremarkable. CT from Saturday was reviewed and shows some evidence of gastritis versus pancreatitis. Patient's lipase is normal. I have discussed it with the patient patient states that he does drink occasionally but is not a heavy drinker. On reassessment his pain is controlled. I think we can safely discharge him home and have him follow-up with GI. Garcia Disclaimer: Jose Disclaimer: This electronic medical record was generated, in whole or in part, using a voice recognition dictation system. Departure Departure Impression: Primary Impression: Epigastric abdominal pain Disposition: HOME / SELF CARE / HOMELESS Condition: IMPROVED Referrals: RAMBO VANG JR, MD (PCP) Please follow up with Dr. Moreira this week. NADER MOREIRA MD Patient Instructions: Abdominal Pain ORION SANDOVAL MD November 07, 2021 03:20
[2021-11-07 03:26] VITALS: BP 153/93
--- NOTE | 2021-11-07 07:32 | EKG ---
[facility] [address] [place] [address] Test Date: 2021-11-07 Test Time: 01:24:50 Pat Name: JEM IRVING Department: Room: Gender: M [place]: : 1960 Requested By: ORION SANDOVAL Order Number: [id number] Reading MD: Measurements Intervals [place] Rate: 68 P: 53 DE: 116 QRS: 47 QRSD: 104 T: 52 QT: 398 QTc: 428 Interpretive Statements SINUS RHYTHM LOW LIMB LEAD VOLTAGE QRS(T) CONTOUR ABNORMALITY CONSIDER ANTEROLATERAL MYOCARDIAL DAMAGE POSSIBLY ABNORMAL ECG RI6.01 No previous ECG available for comparison
== END 2021-11-07 03:39 | disposition home or self-care (01) ==
LOC: ER 00:08
DX: R10.13 Epigastric pain (principal); R11.0 Nausea; I10 Essential (primary) hypertension
CPT/HCPCS: 36415; 80053; 81001; 83690; 84484; 85025; 93005; 96361; 96374; 99285; J2270; J7120